=== PATIENT | female | born 1950 | race Caucasian/White ===

== ENCOUNTER 2017-10-26 05:45 | Inpatient (IN) | payer MEDICARE, OTHER ==
[~2017-10-26] VITALS: Ht 167.6 cm; Wt 92.1 kg
[~2017-10-26 05:45] MED LIST: ALBU8.5H8 INH; ATOR-2 PO; FLEC100T PO; FLUT1DIS3 INH; HYDR-3245 PO; LACT1CAP20 PO; LEVO112T4 PO; LEVO25TA4 PO; LISI1TAB3 PO; METO25TA35 PO; TURMERIC; WARF-36 PO
[2017-10-26 06:23] VITALS: BP 106/74
[2017-10-26] MEDS ORDERED: LACTATED RINGERS 1,000 ML IV SCH (06:39)
[2017-10-26 06:40] LABS: INTERNATIONAL NORMALIZED RATIO 1.02 (0.93-1.1); PROTHROMBIN TIME 10.6 Seconds (9.6-11.5)
[2017-10-26] MEDS ORDERED: LIDOCAINE-MPF 1%, 2ML ONE (06:41)
[2017-10-26] MEDS ORDERED: FENTANYL PF 250 MCG/5ML ONE (06:56)
[2017-10-26] MEDS ORDERED: MIDAZOLAM 1 MG/ML, 2ML ONE (06:56)
[2017-10-26] MEDS ORDERED: KETAMINE 10 MG/ML, 20ML ONE (06:56)
[2017-10-26] MEDS ORDERED: BUPIVACAINE 0.25% ONE (06:59)
[2017-10-26] MEDS ORDERED: THROMBIN 5,000 UNIT VIAL TP ONE (07:00)
[2017-10-26] MEDS ORDERED: MANNITOL PMX 20% 500 ML ONE ×2 (07:00→08:04)
[2017-10-26] MEDS ORDERED: EPINEPHRINE 1 MG/ML, 1ML ONE (07:00)
[2017-10-26] MEDS ORDERED: FUROSEMIDE 20 MG/2 ML ONE (07:00)
[2017-10-26] MEDS ORDERED: LIDOCAINE-MPF 1%, 2ML INFIL ONE (07:00)
[2017-10-26] MEDS ORDERED: GABAPENTIN 300 MG CAPSULE ONE (07:24)
[2017-10-26] MEDS ORDERED: FAMOTIDINE 20 MG TABLET PO ONE (07:30)
[2017-10-26] MEDS ORDERED: GABAPENTIN 300 MG CAPSULE PO ONE (07:30)
[2017-10-26] MEDS ORDERED: METOCLOPRAMIDE 10MG TABLET PO ONE (07:30)
[2017-10-26] MEDS ORDERED: OxyconTIN ER 10 MG TAB.ER PO ONE (07:30)
[2017-10-26] MEDS ORDERED: ACETAMINOPHEN 500 MG TABLET PO ONE (07:30)
[2017-10-26] MEDS ORDERED: ONDANSETRON ODT 8 MG PO ONE (07:30)
[2017-10-26] MEDS ORDERED: GLYCOPYRROLATE 0.2MG/1ML, 5ML ONE (07:36)
[2017-10-26] MEDS ORDERED: NEOSTIGMINE 1 MG/ML, 10ML ONE (07:36)
[2017-10-26] MEDS ORDERED: EPHEDRINE 50 MG/ML, 1ML ONE (07:36)
[2017-10-26] MEDS ORDERED: MORPHINE SULFATE 4 MG/ML, 1ML IVPush PRN (09:30)
[2017-10-26] MEDS ORDERED: ALBUTEROL SULFATE 2.5 MG/3 ML NPPB PRN (09:30)
[2017-10-26] MEDS ORDERED: OXYcodone 5 MG/5 ML ORAL.SOL UDC PO PRN (09:30)
[2017-10-26] MEDS ORDERED: EPHEDRINE 50 MG/ML, 1ML IM PRN (09:30)
[2017-10-26] MEDS ORDERED: HALOPERIDOL 5 MG/ML IV PRN (09:30)
[2017-10-26] MEDS ORDERED: DEXAMETHASONE 4 MG/ML, 1ML ONE ×2 (10:10→10:11)
[2017-10-26] MEDS ORDERED: CEFAZOLIN 1,000 MG ONE ×2 (10:10)
[2017-10-26] MEDS ORDERED: PROPOFOL 10 MG/ML, 20ML ONE (10:10)
[2017-10-26] MEDS ORDERED: ROCURONIUM 10MG/ML,5ML ONE (10:10)
[2017-10-26] MEDS ORDERED: SUCCINYLCHOLINE 20 MG/ML, 10ML ONE (10:10)
[2017-10-26] MEDS ORDERED: SUGAMMADEX 200 MG/2 ML IVPush ONE (11:00)
[2017-10-26] MEDS ORDERED: FENTANYL PF 100 MCG/2ML ONE (11:39)
[2017-10-26] MEDS: FENTANYL PF 100 MCG/2ML IV PRN ×2 (11:40→11:51)
[2017-10-26] MEDS: FLECAINIDE 100MG TABLET PO SCH ×2 (13:00→20:57)
[2017-10-26] MEDS: HYDROcodone/APAP 5/325 TABLET PO PRN ×2 (13:20→20:57)
[2017-10-26] MEDS ORDERED: TEMAZEPAM 15 MG CAPSULE PO PRN (13:30)
[2017-10-26] MEDS ORDERED: ONDANSETRON 2MG/ML, 2ML IV PRN (13:30)
[2017-10-26] MEDS ORDERED: morphine SULFATE 10 MG/ML, 1ML IV PRN ×2 (13:30→15:30)
[2017-10-26 14:47] LABS: BASOPHILS # (AUTO) 0.01 x10^3/uL (0-0.1); BASOPHILS % (AUTO) 0 % (0-1); EOSINOPHILS % (AUTO) 0 % (1-7); LYMPHOCYTES # (AUTO) 0.68 x10^3/uL (1-3.4); LYMPHOCYTES % (AUTO) 4 % (22-44); MD NO; MEAN CORPUSCULAR HEMOGLOBIN 31.6 pg (27.0-34.8); MEAN CORPUSCULAR HGB CONC 33.6 g/dL (32.4-35.8); MEAN CORPUSCULAR VOLUME 94.1 fL (80-100); MEAN PLATELET VOLUME 8.2 fL (7.4-10.4); MONOCYTES # (AUTO) 0.33 x10^3/uL (0.2-0.8); MONOCYTES % (AUTO) 2 % (2-9); NEUTROPHILS # (AUTO) 15.11 x10^3/uL (1.8-6.8); NEUTROPHILS % (AUTO) 94 % (42-75); PLATELET COUNT 243 x10^3/uL (130-400); RED BLOOD COUNT 4.66 x10^6/uL (3.82-5.3); RED CELL DISTRIBUTION WIDTH 13.5 % (9.6-15.2)
[2017-10-26 15:04] LABS: ANION GAP 9 mmol/L (5-15); CALCIUM 9.1 mg/dL (8.5-10.1); CHLORIDE 108 mmol/L (98-107)
[2017-10-26] MEDS: D5%-0.45NACL+KCL 20MEQ 1,000 ML IV SCH ×2 (15:53→23:44)
[2017-10-26] MEDS: CEFAZOLIN PMX 1GM/50ML 50 ML IVPB SCH ×2 (15:53→23:26)
[2017-10-26 15:58] VITALS: BP 105/70
[2017-10-26 18:51] VITALS: BP 96/60
[2017-10-26 18:51] LABS: BASOPHILS % (AUTO) 0 % (0-1); EOSINOPHILS % (AUTO) 0 % (1-7); LYMPHOCYTES # (AUTO) 0.57 x10^3/uL (1-3.4); LYMPHOCYTES % (AUTO) 4 % (22-44); MD NO; MEAN CORPUSCULAR HEMOGLOBIN 31.7 pg (27.0-34.8); MEAN CORPUSCULAR HGB CONC 33.8 g/dL (32.4-35.8); MEAN CORPUSCULAR VOLUME 93.8 fL (80-100); MONOCYTES # (AUTO) 0.28 x10^3/uL (0.2-0.8); MONOCYTES % (AUTO) 2 % (2-9); NEUTROPHILS # (AUTO) 12.62 x10^3/uL (1.8-6.8); NEUTROPHILS % (AUTO) 94 % (42-75); PLATELET COUNT 235 x10^3/uL (130-400); RED BLOOD COUNT 4.47 x10^6/uL (3.82-5.3); RED CELL DISTRIBUTION WIDTH 13.5 % (9.6-15.2)
[2017-10-27 00:26] VITALS: BP 104/69
[2017-10-27] MEDS: HYDROcodone/APAP 5/325 TABLET PO PRN ×6 (03:00→22:44)
[2017-10-27 04:08] VITALS: BP 90/55
[2017-10-27] MEDS: METOPROLOL SUCCINATE 25 MG TAB.ER.24H PO SCH (05:36)
[2017-10-27 05:37] VITALS: BP 94/62
[2017-10-27 05:55] LABS: CHLORIDE 110 mmol/L (98-107)
[2017-10-27 06:02] LABS: HEMOGLOBIN A1C 5.3 % (4.2-6.3)
[2017-10-27 06:06] LABS: ANION GAP 9 mmol/L (5-15); CALCIUM 8.6 mg/dL (8.5-10.1); CREATININE 0.89 mg/dL (0.55-1.02)
[2017-10-27 07:30] VITALS: BP 92/55
[2017-10-27] MEDS: LACTOBACILLUS CHEW TABLET PO SCH (07:36)
[2017-10-27] MEDS: FLECAINIDE 100MG TABLET PO SCH ×2 (07:36→19:59)
[2017-10-27] MEDS: LISINOPRIL 10 MG TABLET PO SCH (07:37)
[2017-10-27] MEDS: ATORVASTATIN 80 MG TABLET PO SCH (07:40)
[2017-10-27] MEDS ORDERED: HYDROCHLOROTHIAZIDE 12.5 MG CAPSULE PO SCH (09:00)
[2017-10-27] MEDS ORDERED: LEVOTHYROXINE 125 MCG TABLET PO SCH (09:00)
[2017-10-27] MEDS ORDERED: LEVOTHYROXINE 25 MCG TABLET PO SCH (09:00)
[2017-10-27] MEDS ORDERED: METOPROLOL TARTRATE 25 MG TABLET PO SCH (09:00)
[2017-10-27] MEDS ORDERED: LISINOPRIL 10 MG TABLET PO SCH (09:00)
[2017-10-27] MEDS: D5%-0.45NACL+KCL 20MEQ 1,000 ML IV SCH ×2 (09:28→16:00)
[2017-10-27] MEDS: ALBUTEROL SULFATE 2.5 MG/3 ML NPPB PRN ×2 (14:41→21:40)
[2017-10-27 15:08] VITALS: BP 97/62
[2017-10-27 19:14] VITALS: BP 106/73
[2017-10-27] MEDS: DOCUSATE 100 MG CAPSULE PO SCH (19:59)
[2017-10-28] MEDS ORDERED: SIMETHICONE 80 MG CHEW TAB PO PRN (00:30)
[2017-10-28] MEDS ORDERED: DIPHENHYDRAMINE 50 MG CAPSULE PO PRN (00:30)
[2017-10-28] MEDS ORDERED: BISACODYL 10 MG SUPP PR PRN (00:30)
[2017-10-28 01:03] VITALS: BP 105/68
[2017-10-28] MEDS: HYDROcodone/APAP 5/325 TABLET PO PRN ×3 (03:07→11:00)
[2017-10-28 05:30] LABS: CHLORIDE 110 mmol/L (98-107)
[2017-10-28 05:39] LABS: ALANINE AMINOTRANSFERASE 31 U/L (12-78); ALBUMIN 2.9 g/dL (3.4-5.0); ALKALINE PHOSPHATASE 71 U/L (45-117); ANION GAP 6 mmol/L (5-15); BILIRUBIN,TOTAL 0.8 mg/dL (0.2-1.0); CALCIUM 8.3 mg/dL (8.5-10.1); CREATININE 0.58 mg/dL (0.55-1.02); TOTAL PROTEIN 5.8 g/dL (6.4-8.2)
[2017-10-28 05:45] LABS: BASOPHILS # (AUTO) 0.02 x10^3/uL (0-0.1); BASOPHILS % (AUTO) 0 % (0-1); EOSINOPHILS # (AUTO) 0.06 x10^3/uL (0-0.4); EOSINOPHILS % (AUTO) 1 % (1-7); LYMPHOCYTES # (AUTO) 1.39 x10^3/uL (1-3.4); LYMPHOCYTES % (AUTO) 15 % (22-44); MD NO; MEAN CORPUSCULAR HEMOGLOBIN 32.2 pg (27.0-34.8); MEAN CORPUSCULAR HGB CONC 34.3 g/dL (32.4-35.8); MEAN CORPUSCULAR VOLUME 93.7 fL (80-100); MEAN PLATELET VOLUME 8.6 fL (7.4-10.4); MONOCYTES # (AUTO) 0.96 x10^3/uL (0.2-0.8); MONOCYTES % (AUTO) 10 % (2-9); NEUTROPHILS # (AUTO) 7.02 x10^3/uL (1.8-6.8); NEUTROPHILS % (AUTO) 74 % (42-75); PLATELET COUNT 216 x10^3/uL (130-400); RED BLOOD COUNT 3.82 x10^6/uL (3.82-5.3); RED CELL DISTRIBUTION WIDTH 13.4 % (9.6-15.2)
[2017-10-28] MEDS: METOPROLOL SUCCINATE 25 MG TAB.ER.24H PO SCH (06:00)
[2017-10-28 06:38] VITALS: BP 95/59
[2017-10-28] MEDS: LACTOBACILLUS CHEW TABLET PO SCH (07:58)
[2017-10-28] MEDS: FLECAINIDE 100MG TABLET PO SCH (07:58)
[2017-10-28] MEDS: DOCUSATE 100 MG CAPSULE PO SCH (07:59)
[2017-10-28] MEDS: D5%-0.45NACL+KCL 20MEQ 1,000 ML IV SCH ×2 (08:00)
[2017-10-28] MEDS: ATORVASTATIN 80 MG TABLET PO SCH (08:03)
[2017-10-28] MEDS: LISINOPRIL 10 MG TABLET PO SCH (08:06)
[2017-10-28] MEDS ORDERED: MAGNESIUM HYDROXIDE 8%, 30ML UDC PO SCH (09:00)
[2017-10-28] MEDS ORDERED: LEVOTHYROXINE 112 MCG TABLET PO SCH (09:00)
[2017-10-28] MEDS ORDERED: HYDR-3237 PO (11:25)
[2017-10-28 12:30] VITALS: BP 95/61
== END 2017-10-28 13:10 | disposition home or self-care (01) | DRG 656 ==
LOC: OUT 05:45 → 4NOR 12:15 → OUT 22:02
PROVIDERS: ADMIT Urology; ATTEND Urology
PROC: 8E0W4CZ Robotic Assisted Procedure of Trunk Region, Percutaneous Endoscopic Approach (ICD-10-PCS; 2017-10-26)
PROC: 0TB04ZZ Excision of Right Kidney, Percutaneous Endoscopic Approach (ICD-10-PCS; principal; 2017-10-26 07:30)
DX: C64.1 Malignant neoplasm of right kidney, except renal pelvis (principal); E43 Unspecified severe protein-calorie malnutrition; I48.91 Unspecified atrial fibrillation; C50.919 Malignant neoplasm of unspecified site of unspecified female breast; E03.9 Hypothyroidism, unspecified; J45.909 Unspecified asthma, uncomplicated; M19.90 Unspecified osteoarthritis, unspecified site; Z79.01 Long term (current) use of anticoagulants; Z85.3 Personal history of malignant neoplasm of breast; Z90.710 Acquired absence of both cervix and uterus; Z92.21 Personal history of antineoplastic chemotherapy; Z90.10 Acquired absence of unspecified breast and nipple
CPT/HCPCS: 36415; 80048; 80053; 83036; 85014; 85018; 85025; 85610; 85730; 86850; 86900; 88305; 88307; 94640; C1729; J0171; J0690; J1100; J2250; J2704; J2710; J3010; J3490; J7613; Q0162; C1760; J0330; J1940; J2270; J3480; J7120